=== PATIENT | male | born 1975 | race Caucasian/White ===

== ENCOUNTER 2022-08-31 05:19 | Emergency (ER) | payer OTHER ==
[2022-08-31] MEDS ORDERED: ONDANSETRON 4 MG/2 ML VIAL ONE (05:44)
[2022-08-31] MEDS ORDERED: KETOROLAC 30 MG/ML INJ ONE (05:44)
[2022-08-31] MEDS ORDERED: NA CHLORIDE 0.9% 1,000 ML ONE (05:44)
[2022-08-31 05:49] LABS: Absolute Lymphocytes (CBC) 1.7 K/uL (0.7-4.9); Hematocrit 47.8 % (39.6-49.0); Lymphocytes % 25.4 % (15.3-44.8); MCV 91.9 fL (80-100)
[2022-08-31 06:06] LABS: Bilirubin Total 0.8 mg/dL (0.2-1.0); Protein, Total 7.2 g/dL (6.4-8.2)
[2022-08-31] MEDS ORDERED: MORPHINE 4 MG/ML SYR ONE (06:30)
[2022-08-31 07:26] LABS: Urine Bilirubin NEGATIVE (Negative); Urine Blood Negative (Negative); Urine Clarity Clear (Clear); Urine Color Colorless (Yellow); Urine Glucose NEGATIVE (Negative); Urine Protein NEGATIVE (Negative); Urine Urobilinogen Normal (Normal); Urine pH 6.5 (5.0-7.0)
--- NOTE | 2022-08-31 07:59 | ER ---
Nurse's Notes [facility] Name: Eulalio Bob Age: 47 yrs Sex: Male : 1975 Arrival Date: 08/31/2022 Time: 05:19 Bed 7 Private MD: Diagnosis: Kidney Stone/ Calculus in bladder Presentation: 08/31 05:31 Chief complaint: Patient states: left flank pain began at 0130 history of kidney kl stones. Coronavirus screen: Vaccine status: Patient reports receiving the 2nd dose of the covid vaccine. Ebola Screen: Patient negative for fever greater than or equal to 101.5 degrees Fahrenheit, and additional compatible Ebola Virus Disease symptoms. Initial Sepsis Screen: Does the patient meet any 2 criteria? No. Patient's initial sepsis screen is negative. Does the patient have a suspected source of infection? No. Patient's initial sepsis screen is negative. Risk Assessment: Do you want to hurt yourself or someone else? Patient reports no desire to harm self or others. 05:31 Method Of Arrival: Ambulatory 05:31 Acuity: EMILIO 3 kl 05:41 Onset of symptoms was August 31, 2022. rv Triage Assessment: 05:35 General: Appears uncomfortable, Behavior is cooperative. Pain: Complains of pain in kl left low back and left lower quadrant Pain currently is 10 out of 10 on a pain scale. EENT: No deficits noted. No signs and/or symptoms were reported regarding the EENT system. Neuro: No deficits noted. Cardiovascular: No deficits noted. Respiratory: No deficits noted. : No signs and/or symptoms were reported regarding the genitourinary system. Historical: - Allergies: 05:32 Biaxin; kl - Home Meds: 05:32 Prilosec Oral [Active]; atorvastatin oral [Active]; Lexapro Oral [Active]; mijaro kl [Active]; - PMHx: 05:32 GERD; hyperlipidemia; Anxiety; kl - Immunization history:: Adult Immunizations not up to date. - Social history:: Smoking status: Patient denies any tobacco usage or history of. Screenin:40 [facility] ED Fall Risk Assessment (Adult) History of falling in the last 3 months, rv including since admission No falls in past 3 months (0 pts) Confusion or Disorientation No (0 pts) Intoxicated or Sedated No (0 pts) Impaired Gait No (0 pts) Mobility Assist Device Used No (0 pt) Altered Elimination No (0 pt) Score/Fall Risk Level 0 - 2 = Low Risk Oriented to surroundings, Maintained a safe environment, Educated pt \T\ family on fall prevention, incl call for assistance when getting out of bed, Assessed \T\ reinforced patient's understanding of fall precautions, Provided non-skid footwear, Hourly rounding (assess needs \T\ fall precautionary measures) done, Used ambulatory aids as needed (educated on \T\ assisted with), Used gait belt as appropriate. Abuse screen: Denies threats or abuse. Denies injuries from another. Nutritional screening: No deficits noted. Tuberculosis screening: No symptoms or risk factors identified. Assessment: 05:32 General: Appears in no apparent distress. uncomfortable, Behavior is calm, cooperative, jb4 appropriate for age. Pain: Complains of pain in left lower quadrant Pain radiates to left low back Pain currently is 10 out of 10 on a pain scale. Neuro: Level of Consciousness is awake, alert, obeys commands, Oriented to person, place, time, situation. Cardiovascular: Patient's skin is warm and dry. Respiratory: Airway is patent Respiratory effort is even, unlabored, Respiratory pattern is regular, symmetrical. GI: Abdomen is flat, non-distended. : Reports pain in left flank(s). EENT: No signs and/or symptoms were reported regarding the EENT system. Derm: Skin is intact, Skin is pink, warm \T\ dry. Musculoskeletal: Circulation, motion, and sensation intact. Range of motion: intact in all extremities. 05:41 GI: Bowel sounds present X 4 quads. Abd is soft and non tender X 4 quads. rv 07:05 Reassessment: Patient appears in no apparent distress at this time. Patient and/or jb4 family updated on plan of care and expected duration. Pain level reassessed. Patient is alert, oriented x 3, equal unlabored respirations, skin warm/dry/pink. 08:13 Reassessment: Patient appears in no apparent distress at this time. Patient and/or ph family updated on plan of care and expected duration. Pain level reassessed. Patient is alert, oriented x 3, equal unlabored respirations, skin warm/dry/pink. Pt d/c home w/ SO. Vital Signs: 05:31 BP 144 / 95; Pulse 64; Resp 18; Temp 98.6; Pulse Ox 98% on R/A; Weight 119.5 kg; Height kl 6 ft. 2 in. ; Pain 10/10; 07:05 BP 127 / 81; Pulse 75; Resp 16; Pulse Ox 98% on R/A; jb4 07:31 BP 132 / 80; Pulse 72; Resp 16; Pulse Ox 96% ; ko1 08:13 BP 128 / 78; Pulse 74; Resp 18; Temp 97.9; Pulse Ox 99% on R/A; ph 05:31 Body Mass Index 33.82 (119.50 kg, 187.96 cm) kl 05:31 Pain Scale: Adult kl ED Course: 05:22 Patient arrived in ED. ja2 05:29 Sebastián Schmitt MD is Attending Physician. bs3 05:29 Rui Maher, CHRIS is Primary Nurse. rv 05:32 Triage completed. kl 05:40 Comprehensive Metabolic Panel Sent. rv 05:40 CBC with Diff Sent. rv 05:40 Inserted saline lock: 20 gauge in right antecubital area, using aseptic technique. rv Blood collected. 05:41 Arm band placed on right wrist. rv 05:41 Patient has correct armband on for positive identification. Bed in low position. Call rv light in reach. Side rails up X 1. Client placed on continuous cardiac and pulse oximetry monitoring. NIBP monitoring applied. 06:05 CT Abd/Pelvis - Without Contrast In Process Unspecified. EDMS 07:22 Urinalysis w/ reflexes Sent. ko1 07:55 Attending Physician role handed off by Sebastián Schmitt MD ms3 07:55 Pavel Green DO is Attending Physician. ms3 07:58 Chi Russo MD is Referral Physician. ms3 08:14 No provider procedures requiring assistance completed. IV discontinued, intact, ph bleeding controlled, No redness/swelling at site. Pressure dressing applied. Administered Medications: 05:40 Drug: Ketorolac IVP 15 mg Route: IVP; Site: right antecubital; rv 05:40 Drug: Ondansetron IVP 4 mg Route: IVP; Site: right antecubital; rv 05:40 Drug: NS 0.9% IV 1000 ml Route: IV; Rate: 1000 ml; Site: right antecubital; rv 06:26 Drug: morphine IVP or IV 4 mg Route: IVP; Infused Over: 4 mins; Site: right antecubital;jb4 Medication: 05:41 VIS not applicable for this client. rv Outcome: 07:58 Discharge ordered by . ms3 08:14 Discharged to home ambulatory, with significant other. ph 08:14 Condition: good 08:14 Discharge instructions given to patient, significant other, Instructed on discharge instructions, follow up and referral plans. medication usage, Demonstrated understanding of instructions, follow-up care, medications, Prescriptions given X 4. 08:14 Patient left the ED. ph Signatures: Dispatcher [employer] EDMS Madison Woodson RN RN Haley Kumar RN RN Eulalio Fontana RN RN jb4 Rui Maher RN RN rv Pavel Green DO DO ms3 Karen Collins Brandon, MD MD bs3 Suzanne Reinoso RN RN ko1 Corrections: (The following items were deleted from the chart) 05:35 05:32 Allergies: No Known Allergies; [facility] 07:51 07:17 Reassessment: arabella [email or web address]
--- NOTE | 2022-08-31 07:59 | EDPHYS ---
Physician Documentation [facility] Name: Eulalio Bob Age: 47 yrs Sex: Male : 1975 Arrival Date: 08/31/2022 Time: 05:19 Bed 7 Private MD: ED Physician Pavel Green HPI: 08/31 05:35 This 47 yrs old Male presents to ER via Ambulatory with complaints of bs3 Possible Kidney Stone. 05:35 47-year-old male history of GERD, remote history of kidney stone presents with left bs3 flank pain started at 1 AM radiating toward his left groin he took Advil at approximately 2 AM without relief he also notes some dysuria no fevers or chills no chest pain shortness of breath no numbness tingling or weakness in EXTR and extremities the pain comes and goes nothing seems to make it better or worse he his last kidney stone was 15 years ago or more. Historical: - Allergies: 05:32 Biaxin; kl - Home Meds: 05:32 Prilosec Oral [Active]; atorvastatin oral [Active]; Lexapro Oral [Active]; mijaro kl [Active]; - PMHx: 05:32 GERD; hyperlipidemia; Anxiety; kl - Immunization history:: Adult Immunizations not up to date. - Social history:: Smoking status: Patient denies any tobacco usage or history of. ROS: 05:35 Constitutional: Negative for fever, chills bs3 05:35 All other systems are negative. Exam: 05:35 Constitutional: This is a well developed, well nourished patient who is awake, alert, bs3 and in no acute distress. Head/Face: Normocephalic, atraumatic. Eyes: Pupils equal round and reactive to light, extra-ocular motions intact. Lids and lashes normal. ENT: mmm, no posterior phyarngeal erythema Neck: Trachea midline, no thyromegaly, no neck stiffness Chest/axilla: Normal chest wall appearance and motion. Nontender with no deformity. No lesions are appreciated. Cardiovascular: Regular rate and rhythm with a normal S1 and S2. symmetric pulses in upper extremities Respiratory: Lungs have equal breath sounds bilaterally, clear to auscultation, no respiratory distress Abdomen/GI: Soft, non-tender, no rebound or guarding Back: Points just below his CVA area for location of pain but no pain to percussion Skin: Warm, dry with normal turgor. Normal color with no rashes, no lesions, and no evidence of cellulitis. MS/ Extremity: Pulses equal, no cyanosis. Neurovascular intact. Full, normal range of motion. Neuro: Awake and alert, GCS 15, oriented to person, place, time, and situation. Cranial nerves II-XII grossly intact. Motor strength 5/5 in all extremities. Sensory grossly intact. Psych: Awake, alert, with orientation to person, place and time. Behavior, mood, and affect are within normal limits. Vital Signs: 05:31 BP 144 / 95; Pulse 64; Resp 18; Temp 98.6; Pulse Ox 98% on R/A; Weight 119.5 kg; Height kl 6 ft. 2 in. ; Pain 10/10; 07:05 BP 127 / 81; Pulse 75; Resp 16; Pulse Ox 98% on R/A; jb4 07:31 BP 132 / 80; Pulse 72; Resp 16; Pulse Ox 96% ; ko1 08:13 BP 128 / 78; Pulse 74; Resp 18; Temp 97.9; Pulse Ox 99% on R/A; ph 05:31 Body Mass Index 33.82 (119.50 kg, 187.96 cm) kl 05:31 Pain Scale: Adult kl MDM: 05:29 Patient medically screened. bs3 05:35 Differential diagnosis: nephrolithiasis, pyelonephritis, UTI, ruptured AAA, dissecting bs3 AAA. Data reviewed: vital signs, nurses notes. ED course: Given his history and physical exam is likely kidney stone he has equal symmetric pulses bilaterally if his work-up is negative will consider further work-up for aaa or dissection we will treat pain and reassess. 06:14 Independent interpretation of the following test(s) in the Emergency Department CT bs3 Scan: My interpretation is Ureteral stone at the bladder on the left side with mild hydroureter. 06:21 ED course: Radiology confirmed 2 mm stone at UVJ. bs3 07:30 Transition of care: Care assumed from Sebastián Schmitt MD. ms3 08:02 Response to treatment: the patient's symptoms have markedly improved after treatment, ms3 and as a result, I will discharge patient. Special discussion: I discussed with the patient/guardian in detail that at this point there is no indication for admission to the hospital. It is understood, however, that if the symptoms persist or worsen the patient needs to return immediately for re-evaluation. 08:03 ED course: Patient reevaluated, alert and oriented x4, no apparent distress, ms3 nontoxic-appearing, speaking full sentences, tolerating p.o. Patient follow-up with Dr. Russo as discussed. Return precautions discussed include worsening symptoms, fevers, chills, or any other concerns.. 08:08 ED course: Discussed repeat troponin with the patient. Patient offered observation and ms3 patient declines. Discussed with patient he is high risk for coronary artery disease and myocardial infarction and patient declines observation. 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 Patient understands and agrees with plan. All questions were answered. Return precautions discussed include worsening symptoms, or any other concerns. On reevaluation patient is alert and oriented x4, no apparent distress, nontoxic-appearing, ambulatory in emergency department, speaking full sentences. 08/31 05:34 Order name: CBC with Diff; Complete Time: 06:14 bs3 08/31 05:34 Order name: Comprehensive Metabolic Panel; Complete Time: 06:14 bs3 08/31 05:34 Order name: Urinalysis w/ reflexes; Complete Time: 07:55 bs3 08/31 05:34 Order name: CT Abd/Pelvis - Without Contrast bs3 Administered Medications: 05:40 Drug: Ketorolac IVP 15 mg Route: IVP; Site: right antecubital; rv 05:40 Drug: Ondansetron IVP 4 mg Route: IVP; Site: right antecubital; rv 05:40 Drug: NS 0.9% IV 1000 ml Route: IV; Rate: 1000 ml; Site: right antecubital; rv 06:26 Drug: morphine IVP or IV 4 mg Route: IVP; Infused Over: 4 mins; Site: right antecubital;jb4 Disposition Summary: 08/31/22 07:58 Discharge Ordered Location: Home ms3 Problem: new ms3 Symptoms: have improved ms3 Condition: Stable ms3 Diagnosis - Kidney Stone/ Calculus in bladder ms3 Followup: bs3 - With: - When: 1 week - Reason: Recheck today's complaints Discharge Instructions: - Discharge Summary Sheet bs3 - Kidney Stones, [id number] bs3 Forms: - Medication Reconciliation Form ms3 - Thank You Letter ms3 - Antibiotic Education ms3 - Prescription Opioid Use ms3 Prescriptions: - acetaminophen-codeine 300-30 mg Oral tablet - take 1 tablet by ORAL route every 4 to 6 hours for 3 days as needed for pain; bs3 12 tablet; Refills: 0, Product Selection Permitted - tamsulosin 0.4 mg Oral capsule - take 1 capsule by ORAL route every 24 hours; 14 capsule; Refills: 0, Product bs3 Selection Permitted - Naprosyn 500 mg Oral Tablet - take 1 tablet by ORAL route 2 times per day take with food; 15 tablet; Refills: bs3 0, Product Selection Permitted - ondansetron 8 mg Oral tablet,disintegrating - take 1 tablet by ORAL route every 8 hours; 12 tablet; Refills: 0, Product bs3 Selection Permitted Signatures: Dispatcher [employer] EDMadison Lott RN RN kl Bryson, James, RN RN jb4 Rui Maher RN RN rv Sims, Marcus, DO DO ms3 Sebastián Schmitt MD MD bs3 Corrections: (The following items were deleted from the chart) 05:35 05:32 Allergies: No Known Allergies; norberto thornton
[2022-08-31 08:33] VITALS: BP 128/78; TEMP 97.9; O2SAT 99
--- NOTE | 2022-08-31 12:30 | RAD REPORT ---
EXAM DESCRIPTION: CT scan of the abdomen and pelvis without contrast CLINICAL HISTORY: Left flank, hx of ston [facility] MAIN TECHNIQUE: Helical CT examination of the abdomen and pelvis was performed from the top of the domes of the diaphragm to the pubic symphysis without the administration of intravenous or oral contrast as per renal stone protocol. Sagittal and coronal reconstructions were performed for review. This exa m was performed according to our departmental dose-optimization program, which includes automated exp osure control, adjustment of the mA and/or kV according to patient size and/or use of iterative recon struction technique. COMPARISON: None FINDINGS: Lower chest: The lower lung parenchyma appears unremarkable. There is no infiltrate, e ffusion or pneumothorax. Small hiatal hernia noted at the GE junction. The visualized cardiac and pos terior mediastinal structures are otherwise unremarkable. ABDOMEN: Organs: The liver appears unremarkable. There is no evidence for mass or intrahepatic biliary ducta l dilatation. The gallbladder appears unremarkable. There is no evidence for stone, gallbladder wa ll thickening or pericholecystic fluid. The pancreas, adrenal glands and spleen appear unremarkabl e. Kidneys: There is mild left-sided hydroureteronephrosis extending down to a 2 mm stone at the left UVJ on image 97. No right-sided hydronephrosis or ureterolithiasis. No evidence of nephrolithiasis on either side. Bowel: The large and small bowel of the abdomen and pelvis appears unremarkable. There is no eviden ce for bowel obstruction. The appendix is seen adjacent to the cecum and appears normal. PELVIS: The urinary bladder appears unremarkable. No intrapelvic free fluid or free air identified. No lympha denopathy seen. The prostate and seminal vesicles are unremarkable. Bones and soft tissues: No acute osseous abnormalities are identified. The soft tissues are unremar kable. IMPRESSION: There is a 2 mm stone at the left UVJ with mild left-sided hydroureteronephrosis. No other acute process seen in the abdomen/pelvis. Small hiatal hernia. Normal appendix. Electronically signed by: Eyal Krueger MD 08/31/2022 6:16 AM CDT Due to temporary technical issues with the PACS/Fluency reporting system, reports are being signed by the in house radiologist without review as a courtesy to ensure prompt reporting. The interpreting r adiologist is fully responsible for the content of the report.
== END 2022-08-31 08:14 | disposition home or self-care (01) ==
LOC: ER 05:19
DX: N20.0 Calculus of kidney (principal); N21.0 Calculus in bladder; E78.5 Hyperlipidemia, unspecified; F41.9 Anxiety disorder, unspecified; Z88.8 Allergy status to other drugs, medicaments and biological substances
CPT/HCPCS: 85025; 36415; 81003; 80053; 74176; 96375; 96374; 99284; J2405; J7030